=== PATIENT | male | born 1965 | race Caucasian/White ===

== ENCOUNTER 2017-03-13 18:36 | Emergency (ER) | payer OTHER ==
[2017-03-13 18:57] VITALS: BP 118/71; PULSE 60; TEMP 98; BMI 31.4
[2017-03-13] MEDS ORDERED: KETOROLAC TROMETHAMINE 60 MG/2 ML VIAL IM ONE (21:33)
[2017-03-13] MEDS ORDERED: CYCLOBENZAPRINE HCL 10 MG TABLET (FP) PO ONE (21:33)
--- NOTE | 2017-03-13 21:33 | PDOC ---
History of Present Illness - General Chief Complaint: Back Pain Stated Complaint: PAIN Time Seen by Provider: 03/13/17 20:04 Past History - Past Medical History Allergies/Adverse Reactions: Allergies Allergy/AdvReac Type Severity Reaction Status Date / Time No Known Allergies Allergy Verified 03/13/17 18:55 Home Medications: Ambulatory Orders Cyclobenzaprine HCl [Flexeril -] 10 mg PO TID #10 tablet 03/13/17 Ibuprofen 800 mg PO TID #30 tablet 03/13/17 COPD: No DVT: No Dementia: No Diabetes: No - Immunization History Immunization Up to Date: Yes - Suicide/Smoking/Psychosocial Hx Smoking History: Never smoked Have you smoked in the past 12 months: No Information on smoking cessation initiated: No Hx Alcohol Use: No Drug/Substance Use Hx: No Substance Use Type: None *Physical Exam - Vital Signs Last Vital Signs Temp Pulse Resp BP Pulse Ox 98.0 F 60 17 118/71 97 03/13/17 18:52 03/13/17 18:52 03/13/17 18:52 03/13/17 18:52 03/13/17 18:52 *DC/Admit/Observation/Transfer Diagnosis at time of Disposition: Low back pain - Discharge Dispostion Disposition: HOME Condition at time of disposition: Good Admit: No - Referrals Referrals: Nazia Coreas [Primary Care Provider] - Shannon Curry MD [Staff Physician] - - Patient Instructions Printed Discharge Instructions: DI for Low Back Pain Additional Instructions: You have low back pain. Please take Motrin 800 mg 3 times a day not to exceed 3000 mg a day. Your also prescribed Flexeril. Please take this medication every [address] after taking this medication as it may make you sleepy. You may use a hot compress on your back to help with the pain. Warm baths may help as well. Please follow-up with your primary care doctor this week. Return to the emergency department if you have worsening pain, numbness and tingling in your legs, weakness of your leg, if you are incontinent of urine or stool, or have any changes in your symptoms. - Post Discharge Activity Forms/Work/School Notes: Back to Work
[2017-03-13] MEDS ORDERED: CYCLOBENZAPRINE HCL 10 MG TABLET (FP) ONE (21:45)
[2017-03-13] MEDS ORDERED: KETOROLAC TROMETHAMINE 60 MG/2 ML VIAL ONE (21:45)
== END 2017-03-13 22:15 | disposition home or self-care (01) ==
LOC: JERFT 18:36
PROC: 3E0233Z Introduction of Anti-inflammatory into Muscle, Percutaneous Approach (ICD-10-PCS; principal; 2017-03-13)
DX: M54.5 Low back pain (principal)
CPT/HCPCS: 96372; 99281-25

== ENCOUNTER 2017-04-17 10:41 | Emergency (ER) | payer OTHER ==
[2017-04-17 10:51] VITALS: BP 116/66; PULSE 64; TEMP 98.7; BMI 26.6
--- NOTE | 2017-04-17 11:31 | PDOC ---
History of Present Illness - General Chief Complaint: Cold Symptoms Stated Complaint: COUGH Time Seen by Provider: 04/17/17 11:08 History Source: Patient Exam Limitations: No Limitations - History of Present Illness Initial Comments: 04/17/17 12:01 Patient is a 52-year-old male with no past medical history who presents emergency department today with 2 weeks of cough. Patient states that his symptoms have gotten progressively worse over the last 2 weeks. He has a moist productive cough with yellow sputum. He states that yesterday he developed fevers. Admits to post tussive vomiting and shortness of breath with exertion. Denies chills, chest pain, congestion, runny nose, ear pain, sore throat, wheezing, nausea, diarrhea. Past History - Travel Traveled outside of the country in the last 30 days: No Close contact w/someone who was outside of country & ill: No - Past Medical History Allergies/Adverse Reactions: Allergies Allergy/AdvReac Type Severity Reaction Status Date / Time No Known Allergies Allergy Verified 04/17/17 10:51 Home Medications: Ambulatory Orders Albuterol Sulfate Inhaler - [Ventolin HFA Inhaler -] 1 - 2 inh PO Q4H #1 inhaler 04/17/17 Azithromycin [Zithromax 250mg Tablets -] 250 mg PO UTDICT #6 tab 04/17/17 Guaifenesin [Robitussin] 10 ml PO QID #200 ml 04/17/17 COPD: No DVT: No Dementia: No Diabetes: No - Immunization History Immunization Up to Date: Yes - Suicide/Smoking/Psychosocial Hx Smoking History: Never smoked Have you smoked in the past 12 months: No Hx Alcohol Use: No Drug/Substance Use Hx: No Substance Use Type: None Review of Systems - Review of Systems Able to Perform ROS?: Yes Comments:: 04/17/17 12:03 CONSTITUTIONAL: Present: Fever Absent: chills, diaphoresis, generalized weakness, malaise, loss of appetite HEENT: Absent: rhinorrhea, nasal congestion, throat pain, throat swelling, difficulty swallowing, mouth swelling, ear pain, eye pain, visual Changes CARDIOVASCULAR: Absent: chest pain, loss of consciousness, palpitations, irregular heart rate, peripheral edema RESPIRATORY: Present: productive cough, dyspnea on exertion. Absent:shortness of breath, orthopnea, wheezing, stridor, hemoptysis GASTROINTESTINAL: Absent: abdominal pain, abdominal distension, nausea, vomiting, diarrhea, constipation, melena, hematochezia GENITOURINARY: Absent: dysuria, frequency, urgency, hesitancy, hematuria, flank pain, genital pain MUSCULOSKELETAL: Absent: myalgia, arthralgia, joint swelling SKIN: Absent: rash, itching, pallor HEMATOLOGIC/IMMUNOLOGIC: Absent: easy bleeding, easy bruising, lymphadenopathy, frequent infections ENDOCRINE: Absent: unexplained weight gain, unexplained weight loss, heat intolerance, cold intolerance NEUROLOGIC: Absent: headache, focal weakness or paresthesias, dizziness, unsteady gait, seizure, mental status changes, bladder or bowel incontinence PSYCHIATRIC: Absent: anxiety, depression, suicidal or homicidal ideation, hallucinations. Is the patient limited Turkmen proficient: No *Physical Exam - Vital Signs Last Vital Signs Temp Pulse Resp BP Pulse Ox 98.7 F 64 20 116/66 97 04/17/17 10:48 04/17/17 10:48 04/17/17 10:48 04/17/17 10:48 04/17/17 10:48 - Physical Exam Comments: 04/17/17 12:03 GENERAL: Well developed, well nourished. Awake and alert. No acute distress. HEENT: Normocephalic, atraumatic. PERRLA, EOMI. No conjunctival pallor. Sclera are non- icteric. Moist mucous membranes. Oropharynx is clear. NECK: Supple. Full ROM. No JVD. Carotid pulses 2+ and symmetric, without bruits. No thyromegaly. No lymphadenopathy. CARDIOVASCULAR: Regular rate and rhythm. No murmurs, rubs, or gallops. Distal pulses are 2+ and symmetric. PULMONARY: No evidence of respiratory distress. Course lung sounds at the bases b/l. No wheezing, rales or rhonchi. ABDOMINAL: Soft. Non-tender. Non-distended. No rebound or guarding. No organomegaly. Normoactive bowel sounds. MUSCULOSKELETAL Normal range of motion at all joints. No bony deformities or tenderness. No CVA tenderness. EXTREMITIES: No cyanosis. No clubbing. No edema. No calf tenderness. SKIN: Warm and dry. Normal capillary refill. No rashes. No jaundice. NEUROLOGICAL: Alert, awake, appropriate. Cranial nerves 2-12 intact. No deficits to light touch and temperature in face, upper extremities and lower extremities. No motor deficits in the in face, upper extremities and lower extremities. Normoreflexic in the upper and lower extremities. Normal speech. Toes are down- going bilaterally. Gait is normal without ataxia. PSYCHIATRIC: Cooperative. Good eye contact. Appropriate mood and affect. Medical Decision Making - Medical Decision Making 04/17/17 12:04 Patient is a 52-year-old male with no past medical history presents emergency Department with 2 weeks of cough, and new onset fever. Exam with coarse lung sounds bilaterally. We'll rule out pneumonia at this time. 1.chest x-ray 2.DuoNeb, Tylenol 3.reevaluate *DC/Admit/Observation/Transfer Diagnosis at time of Disposition: Bronchitis - Discharge Dispostion Disposition: HOME Condition at time of disposition: Good Admit: No - Referrals Referrals: Nazia Coreas [Primary Care Provider] - - Patient Instructions Printed Discharge Instructions: DI for Acute Bronchitis Additional Instructions: You have bronchitis. Her chest x-ray was negative today for pneumonia. Please take the Z-Carlitos as prescribed to help with her symptoms. Your also prescribed albuterol inhaler. Please use this every 4 hours while you're awake to help with her symptoms. Your also prescribed Robitussin to help with the cough. He may take this medication every 6 hours. Drink plenty of fluids. He may have Tylenol or Motrin as needed for pain. Please follow up with her primary care doctor this week. Return to the emergency department if you have worsening pain, shortness of breath, difficulty breathing, or any changes in her symptoms. - Post Discharge Activity
[2017-04-17] MEDS ORDERED: ACETAMINOPHEN 325 MG TABLET (FP) PO ONE (11:33)
[2017-04-17] MEDS ORDERED: ALBUTEROL SO4 2.5/IPRATROPIUM 0.5 INH SOL 3 ML VIAL.NEB. NEB ONE ×2 (11:33→11:49)
[2017-04-17] MEDS ORDERED: ACETAMINOPHEN 325 MG TABLET (FP) ONE (11:49)
== END 2017-04-17 12:47 | disposition home or self-care (01) ==
LOC: JERFT 10:41
PROC: 3E0F7GC Introduction of Other Therapeutic Substance into Respiratory Tract, Via Natural or Artificial Opening (ICD-10-PCS; principal; 2017-04-17)
DX: J20.9 Acute bronchitis, unspecified (principal)
CPT/HCPCS: 71020-TC; 94640; 99281-25

== ENCOUNTER 2017-07-13 00:31 | Emergency (ER) | payer OTHER ==
[2017-07-13 01:01] VITALS: BP 123/83; PULSE 60; TEMP 98.2; BMI 28.2
--- NOTE | 2017-07-13 02:37 | PDOC ---
History of Present Illness - General Chief Complaint: Injury Stated Complaint: L LEG INJURY Time Seen by Provider: 07/13/17 02:36 - History of Present Illness Initial Comments: 07/13/17 03:12 52 year old male with no PMH presented to the ED after felling sever pain in his left ankle and not able to walk onhis feet , pt was helping in carrying Furniture last night with no complications , today afternoon while he was driving he iron sever spasm in his left ankle and when he get out of the car was not able to walk on his left feet. that promt him to come to the E . the pain is 6/10 , local non radiating , denies any nubness, tingling, but not able to move the feet. he think he rupture his Achilles tendon. Pt denies any headache, blurry vision , fever, chills , N/V/D/C. denies any chest pain or abdominal pain. denies any urinary symptoms. PMH: None PSH: Appendectomy FH: non contributory Allergies: NKDA Meds: None Social: smoked in the past 1 PPD for 15 years , quit 2005, drink alcohol socially , denies any drug abuse Physical Exam: General: Well nourished in NAD Head: NC/AT ENT: MMB , TOMÁS , EOMI Neck: supple Lungs: CTA B/L Heart : RRR, No MRG Abdomen: soft, ND, NT , normo active bowel sounds Legs: +2 DP pulse ,No edema , left leg with sever tenderness to palpation on achilis tendon area, not able to do dorsal or plantar flexion right leg with FROM , Neuro: no focal deficit , Psych: appropriate mood and effect Skin: warm , dry, no rash or changes noted. Will Do Ankle left xray Tylenol 650 mg po once for pain pt denies muscle relaxant because he wants to drive Past History - Past Medical History Allergies/Adverse Reactions: Allergies Allergy/AdvReac Type Severity Reaction Status Date / Time No Known Allergies Allergy Verified 04/17/17 10:51 Home Medications: Ambulatory Orders Albuterol Sulfate Inhaler - [Ventolin HFA Inhaler -] 1 - 2 inh PO Q4H #1 inhaler 04/17/17 Azithromycin [Zithromax 250mg Tablets -] 250 mg PO UTDICT #6 tab 04/17/17 Guaifenesin [Robitussin] 10 ml PO QID #200 ml 04/17/17 COPD: No DVT: No Dementia: No Diabetes: No - Immunization History Immunization Up to Date: Yes - Suicide/Smoking/Psychosocial Hx Smoking History: Never smoked Have you smoked in the past 12 months: No Information on smoking cessation initiated: No Hx Alcohol Use: No Drug/Substance Use Hx: No Substance Use Type: None *Physical Exam - Vital Signs Last Vital Signs Temp Pulse Resp BP Pulse Ox 98.2 F 60 19 123/83 98 07/13/17 00:55 07/13/17 00:55 07/13/17 00:55 07/13/17 00:55 07/13/17 00:55 *DC/Admit/Observation/Transfer Diagnosis at time of Disposition: Achilles tendon pain - Discharge Dispostion Disposition: HOME Condition at time of disposition: Stable - Referrals Referrals: Mal Krishnamurthy MD [Staff Physician] - Nazia Coreas [Primary Care Provider] - 1 week Barrington Wilson MD [Staff Physician] - 2 Days - Patient Instructions Printed Discharge Instructions: Achilles Tendinopathy, Achilles Tendon Rupture , DI for Achilles Tendinopathy Additional Instructions: Mr Vu Thank you for coming to the ER today please be sure to follow up with the orthopedist Two were provided for you in your discharge papers If they do not take your insurance, please call your insurance company for a referral You can remove splint if it is too tight or is causing you more pain Please take Motrin and Tylenol for pain Return to the ER for any other concerns or complaints Please avoid weight bearing with your affected foot - Post Discharge Activity Forms/Work/School Notes: Back to Work
[2017-07-13] MEDS ORDERED: ACETAMINOPHEN 325 MG TABLET (FP) PO ONE (02:52)
[2017-07-13] MEDS ORDERED: METHOCARBAMOL 500 MG TABLET PO ONE (02:53)
[2017-07-13] MEDS ORDERED: ACETAMINOPHEN 325 MG TABLET (FP) ONE (03:11)
[2017-07-13] MEDS ORDERED: METHOCARBAMOL 500 MG TABLET ONE (03:12)
--- NOTE | 2017-07-13 03:42 | PDOC ---
Attending Attestation - Resident Resident Name: Poncho Ram - ED Attending Attestation I have performed the following: I have examined & evaluated the patient, The case was reviewed & discussed with the resident, I agree w/resident's findings & plan, Exceptions are as noted - HPI HPI: 07/13/17 03:43 Mr Vu is a 52 yo M with no significant past medical history Was moving furniture on Wednesday Noted severe achilles tenderness Pt has difficulty walking on account of his pain No swelling Pt has not taken any motrin for pain No prior episodes like this - Physicial Exam PE: 07/13/17 03:47 Achilles tendon is tender to palpation Appears to be in tact Velasquez test performed, not suggestive of complete achilles tendon rupture Sensation in tact 2+ DP, 2 + PT Brisk cap refill - Medical Decision Making 07/13/17 03:48 Achilles tendonitis vs. partial achilles tendon rupture Unclear which is causing his symptoms Will give motrin for pain Will place in splint Will ask pt to follow up with Ortho Discharge Disposition - Diagnosis Achilles tendon pain - Discharge Dispostion Disposition: HOME Condition at time of disposition: Stable Admit: No - Referrals Referrals: Nazia Coreas [Primary Care Provider] - Barrington Wilson MD [Staff Physician] - Mal Krishnamurthy MD [Staff Physician] - - Patient Instructions Printed Discharge Instructions: Achilles Tendinopathy, Achilles Tendon Rupture , DI for Achilles Tendinopathy Additional Instructions: Mr Vu Thank you for coming to the ER today please be sure to follow up with the orthopedist Two were provided for you in your discharge papers If they do not take your insurance, please call your insurance company for a referral You can remove splint if it is too tight or is causing you more pain Please take motrin and tylenol for pain Return to the ER for any other concerns or complaints Please avoid weight bearing with your affected foot - Post Discharge Activity Work/School Note: Back to Work
== END 2017-07-13 04:20 | disposition home or self-care (01) ==
LOC: JER 00:31
DX: M76.60 Achilles tendinitis, unspecified leg (principal); X50.0XXA Overexertion from strenuous movement or load, initial encounter; Y93.E6 Activity, residential relocation; Y92.89 Other specified places as the place of occurrence of the external cause; Y99.8 Other external cause status
CPT/HCPCS: 73610-TC-LT-FY; 73630-TC-LT; 99281-25